=== PATIENT | male | born 1965 | race Caucasian/White ===

== ENCOUNTER 2019-08-15 09:30 | Inpatient (IN) | payer MEDICARE, OTHER ==
[2019-08-15] MEDS ORDERED: Fentanyl 250 MCG/5 ML VIAL ONE (12:57)
[2019-08-15] MEDS ORDERED: Lidocaine 1% PF 5 ML VIAL ONE (13:01)
[2019-08-15] MEDS ORDERED: Ondansetron PF 4 MG/2 ML Vial ONE (13:01)
[2019-08-15] MEDS ORDERED: ePHEDrine/0.9% NaCl/PF SYRINGE 50 mg/10 ml ONE (13:01)
[2019-08-15] MEDS ORDERED: Rocuronium Bromide 10 MG/ML (10ML VIAL) ONE (13:01)
[2019-08-15] MEDS ORDERED: Glycopyrrolate 0.2 MG/ML 5 ML SYRINGE ONE (13:01)
[2019-08-15] MEDS ORDERED: Dexamethasone 20 MG/5 ML VIAL ONE (13:01)
[2019-08-15] MEDS ORDERED: PROPOFOL 200 MG/20 ML VIAL ONE (13:01)
[2019-08-15] MEDS ORDERED: PHENYLEPHRINE-NS 100 MCG/ML 10 ML SYRINGE ONE (13:01)
[2019-08-15] MEDS ORDERED: Lidocaine 1% w/Epinephrine 1:100K 20 ML VIAL ONE (13:12)
[2019-08-15] MEDS ORDERED: Oxymetazoline HCl 0.05% ( 15 ML ) ONE (13:18)
[2019-08-15 13:28] LABS: Hemoglobin 16.6 g/dL (14.0-18.0)
[2019-08-15] MEDS ORDERED: Clindamycin/D5W 900 mg/50 ml Premix Bag ONE (13:56)
[2019-08-15] MEDS ORDERED: methylPREDNISolone Acetate 40 mg/ml Vial ONE (14:44)
[2019-08-15] MEDS ORDERED: Ketorolac Tromethamine 30 MG/ML VIAL IVP PRN (16:03)
[2019-08-15] MEDS ORDERED: Meperidine HCl/PF 25 MG/ML VIAL SLOW IVP PRN (16:03)
[2019-08-15] MEDS ORDERED: Ondansetron HCl/PF 4 MG/2 ML Vial IVP PRN (16:03)
[2019-08-15] MEDS ORDERED: Promethazine HCl 25 MG/ML VIAL IM PRN (16:03)
[2019-08-15] MEDS ORDERED: Promethazine HCl 25 MG/ML VIAL SLOW IVP PRN (16:03)
[2019-08-15] MEDS ORDERED: Fentanyl 100 MCG/2 ML VIAL ONE ×2 (16:14→16:40)
--- NOTE | 2019-08-15 17:10 | EKG ---
Test Reason : PREOP Blood Pressure : / mmHG Vent. Rate : 050 BPM Atrial Rate : 050 BPM P-R Int : 180 ms QRS Dur : 102 ms QT Int : 424 ms P-R-T Axes : 048 060 054 degrees QTc Int : [address] elevation, consider early repolarization Otherwise normal ECG Confirmed by LANIE PRICE ([id number]) on 08/15/2019 5:10:18 PM Referred By: BRANDON Confirmed By:LANIE PRICE
[2019-08-15] MEDS: Morphine 2 MG/ML SYRINGE SLOW IVP PRN ×2 (18:03→23:16)
[2019-08-15 18:05] VITALS: BMI 31.6
[2019-08-15] MEDS: Hydrocodone-Acetamin 15 ML UDCUP PO PRN (19:49)
[2019-08-15] MEDS: Chlorhexidine Gluconate 15 ML UDCUP SSP SCH (21:22)
[2019-08-15] MEDS: Clindamycin/D5W 900 MG in Premix Bag 1 BAG IVPB SCH (21:26)
[2019-08-15] MEDS: Ondansetron PF 4 MG/2 ML Vial SLOW IVP PRN (23:17)
[2019-08-16] MEDS: Hydrocodone-Acetamin 15 ML UDCUP PO PRN ×4 (00:33→17:00)
[2019-08-16] MEDS: Sodium Chloride 0.45% 1,000 ML IV SCH ×3 (02:10→18:07)
[2019-08-16] MEDS: Morphine 2 MG/ML SYRINGE SLOW IVP PRN (04:35)
[2019-08-16] MEDS: Bacitracin 1 PK TOP PRN ×2 (05:19→12:07)
[2019-08-16] MEDS: Clindamycin/D5W 900 MG in Premix Bag 1 BAG IVPB SCH ×3 (05:26→21:03)
[2019-08-16] MEDS: Ondansetron PF 4 MG/2 ML Vial SLOW IVP PRN (05:51)
[2019-08-16] MEDS: Chlorhexidine Gluconate 15 ML UDCUP SSP SCH ×4 (08:00→21:03)
[2019-08-16] MEDS ORDERED: Prevnar 13-Val Conj/PF 0.5 ML SYRINGE IM ONE (18:30)
[2019-08-16] MEDS ORDERED: FLU VACC QS2019-20(6MOS UP)/PF 60 MCG/0.5 ML SYRINGE IM ONE (18:30)
[2019-08-17] MEDS: Hydrocodone-Acetamin 15 ML UDCUP PO PRN (04:51)
[2019-08-17] MEDS: Sodium Chloride 0.45% 1,000 ML IV SCH ×2 (04:52→10:05)
[2019-08-17] MEDS: Chlorhexidine Gluconate 15 ML UDCUP SSP SCH (06:41)
[2019-08-17] MEDS: Clindamycin/D5W 900 MG in Premix Bag 1 BAG IVPB SCH (06:41)
[2019-08-17 08:50] VITALS: BP 137/73; TEMP 98.2
--- NOTE | 2019-08-17 15:16 | OP ---
DATE OF PROCEDURE: 08/15/2019 PREOPERATIVE DIAGNOSES: 1. 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 2. Dysphagia. POSTOPERATIVE DIAGNOSES: 1. 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 2. Dysphagia. PROCEDURES PERFORMED: 1. Right partial glossectomy. 2. Right selective neck dissection levels 1 through 3 (supraomohyoid neck dissection). COMPTOMETER OPERATOR: Dr. Allan Sarmiento. ESTIMATED BLOOD LOSS: 100 mL. COMPLICATIONS: None. ANESTHESIA: GETA. DESCRIPTION OF PROCEDURE: The patient was taken to operating room and placed supine on the table. General endotracheal anesthesia was obtained by the anesthesia staff via nasotracheal intubation. Following this, a shoulder roll was placed and dental retractors were used to expose the oral cavity. The tongue was then grasped with the towel clip in the midline and was retracted. The lesion on the right lateral tongue was then resected using a 1.5 cm margin using the Bovie electrocautery. Peripheral margins and deep margins were sent and were all noted to be free of any residual disease. The mucosa and the deep tongue musculature were then closed using 2-0 and 3-0 Vicryl stitches. Following this, the right neck was prepped and draped in standard surgical fashion. An apron type incision was made extending down to the midline of the neck, and the incision was carried through skin and subcutaneous tissue and platysmal layer. Following this, subplatysmal flaps were elevated superiorly and inferiorly. Level 1 dissection was performed first. Dissection was carried down the digastric muscle, and the facial vein was suture ligated and then working along the periosteum of the mandible, the right marginal mandibular nerve was identified and was retracted superiorly as adjacent lymph nodes were retracted inferiorly, and the facial artery and vein were suture ligated. Following this, the right submandibular gland was displaced inferiorly and the lingual nerve was identified. The postganglionic fibers were identified and were suture ligated immediately adjacent to the submandibular gland. Following this, the hypoglossal nerve was identified and the mylohyoid was retracted anteriorly. The submandibular duct was then suture ligated with 2-0 silk stitches. Following this, level 2A contents were dissected off the mylohyoid and anterior neck and were removed along with the level 1B and submandibular contents. Following this, the digastric muscle was retracted superiorly, again the sternocleidomastoid fascia to the level of the omohyoid muscle. The sternocleidomastoid was unwrapped anteriorly, and the spinal accessory nerve was identified. The spinal accessory nerve was noted to be coursing lateral to the internal jugular vein. The deep levels 2 and 3 were then dissected posteriorly down to the level of the deep neck musculature fascia. Staying just above this level, the levels 2 and 3 were then retracted medially and were dissected off the internal jugular vein and internal carotid artery. Branching vessels of the internal jugular vein were suture ligated. Following this, levels 2 and 3 were removed. The wound was irrigated. A drain was placed, and Vicryl stitches were used to close the platysmal layer and subcuticular layer. Davon were used to close the skin. The patient tolerated the procedure well, and the drain was working at the end of the procedure. Job ID: [id number]
== END 2019-08-17 11:01 | disposition home or self-care (01) | DRG 134 ==
LOC: SURG A 09:50 → CCU 17:50 → SURG A 08-16 12:31
PROVIDERS: ADMIT Otolaryngology Plastic Surgery within the Head & Neck; ATTEND Otolaryngology Plastic Surgery within the Head & Neck
PROC: 0CB7XZZ Excision of Tongue, External Approach (ICD-10-PCS; principal; 2019-08-15)
PROC: 07B10ZX Excision of Right Neck Lymphatic, Open Approach, Diagnostic (ICD-10-PCS; 2019-08-15)
PROC: 3E02340 Introduction of Influenza Vaccine into Muscle, Percutaneous Approach (ICD-10-PCS; 2019-08-16)
PROC: 3E0234Z Introduction of Serum, Toxoid and Vaccine into Muscle, Percutaneous Approach (ICD-10-PCS; 2019-08-16)
DX: C02.9 Malignant neoplasm of tongue, unspecified (principal); I10 Essential (primary) hypertension; Z23 Encounter for immunization; G43.909 Migraine, unspecified, not intractable, without status migrainosus; F17.200 Nicotine dependence, unspecified, uncomplicated; N40.0 Benign prostatic hyperplasia without lower urinary tract symptoms; M19.90 Unspecified osteoarthritis, unspecified site
CPT/HCPCS: 36415; 85014; 85018; 88305; 88307; 88309; 88331; 90471; 90670; 90686; 93005; 93010; G0008; G0009; J0131; J1030; J2270; J2405; J3010; J3490